=== PATIENT | male | born 1950 | race Caucasian/White ===

== ENCOUNTER 2017-07-15 06:18 | Day surgery (SDC) | payer MEDICARE ==
--- NOTE | 2017-07-03 16:29 | HP ---
CC: Dr. Ballesteros; Dr. Jo * PREOPERATIVE HISTORY AND PHYSICAL: DATE OF ADMISSION: 07/15/17 This patient is scheduled for same-day surgery admission by Dr. Booker on 07/15/17. DATE OF EXAMINATION: 07/02/17. ATTENDING SURGEON: Dr. Chris Booker * (dictated by Bren Guaman NP). CHIEF COMPLAINT: Right inguinal hernia. HISTORY OF PRESENT ILLNESS: The patient is a pleasant 66-year-old male referred to Dr. Booker by Dr. Ballesteros for evaluation of a right inguinal hernia. The patient noted a bulge in the right groin approximately 2 months ago. He denies any inciting event or injury. He has had mild discomfort from this area and it is not completely reducible. He denies any dysuria. He denies any change in his bowel habits or other gastrointestinal complaints. He is not noted any bulges in the left inguinal region. He has not had previous inguinal surgery. Dr. Booker examined the patient and noted an obvious bulge in the right inguinal region that is tender and not completely reducible and moderate in size. Dr. Booker has recommended open repair of the right inguinal hernia with mesh as the same-day surgery procedure and discussed the nature of the procedure, the relevant risks, and benefits and today I have reviewed the typical postoperative care and recovery. The patient has had a chance to ask questions and stated that he understands the information and is satisfied with the answers given to his questions. He will sign surgical consent on the day of surgery. He had preoperative cardiac clearance with Dr. Jo. Please see the attached consultation note dated 06/04/17. 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 MEDICATIONS: 1. Pradaxa 150 mg p.o. b.i.d. The patient was advised to take his last dose of Pradaxa on 07/12/17 in preparation for surgery. 2. Multivitamins daily. 3. Fluticasone 50 mcg 2 sprays each nostril daily. 4. Atorvastatin 40 mg p.o. daily. 5. Sotalol 120 mg one half tablet b.i.d. ALLERGIES: PENICILLIN. FAMILY HISTORY: No known anesthesia complications, bleeding tendencies, or clotting disorders. 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 REVIEW OF SYSTEMS: Constitutional: Denies constitutional symptoms. Cardiovascular: Denies chest pain, shortness of breath, orthopnea, syncope; denies history of deep vein thrombosis or pulmonary embolism. Please see the attached cardiology consultation note from Dr. Jo for details of his cardiac history. EKG in Dr. Jo's office 06/04/17 indicated normal sinus rhythm. Echocardiogram done 06/12/17 revealed ejection fraction of 55% and no aortic valve stenosis. Respiratory: History of emphysema with no current shortness of breath or orthopnea. Gastrointestinal: Denies nausea, vomiting, diarrhea, or constipation. Genitourinary: Denies any dysuria. Hematologic: Denies any bleeding tendencies and is not certain if he has received blood transfusions. He denies any previous anesthesia complications. Musculoskeletal : Denies any chronic back or joint pain. Neurologic: Status post left CVA 2008 with full recovery except for very mild speech impairment. PHYSICAL EXAMINATION GENERAL SURVEY: The patient is a 66-year-old male well developed, well nourished, in no acute distress. VITAL SIGNS: Height 66.5 Inches, weight 180 pounds. Body mass index 28.6. Blood pressure 100/70, pulse 88 and regular, respiratory rate 16, temperature 97.4 tympanic. SKIN: Warm, dry, intact. HEENT: Benign. NECK: Supple. No carotid bruits. No cervical lymphadenopathy. CHEST: With well-healed sternotomy incision and right thoracotomy incision. Lungs, breath sounds bilaterally clear and equal. HEART: Regular rate and rhythm. S1 and S2. No murmurs or rubs appreciated. ABDOMEN: Active bowel sounds. Soft and nondistended. Nontender throughout. No obvious masses, organomegaly, or evidence of ventral hernia. GENITALIA: Inguinal exam was done by Dr. Booker. Obvious right inguinal bulge consistent with right inguinal hernia that is tender and not completely reducible, moderate in size; no left inguinal hernia. No testicular masses. No scrotal enlargement. RECTAL: Deferred. EXTREMITIES: Warm without edema or skin ulcerations. NEUROLOGIC: Alert and oriented x3. Steady gait. Mild speech impairment. Core Paster strength is 5/5. IMPRESSION: Right inguinal hernia. PLAN: Same-day surgery admission to Dr. Booker's service for open right inguinal hernia repair with mesh on 07/15/17. BREN GUAMAN, LITERACY COACH [id number]/CPS #: [id number] YOSEF
[~2017-07-15 06:18] MED LIST: Buffered Lidocaine 0.9% SYRIN* 5 ML/SYR SYRINGE INTRADERM ONE; NS 0.9% 1000 ML* 1,000 ML IV SCH
[2017-07-15] MEDS ORDERED: Clindamycin 900 MG IVPREMIX(* 900 MG/50 ML SDV IV ONE (06:39)
[2017-07-15] MEDS ORDERED: Buffered Lidocaine 0.9% SYRIN* 5 ML/SYR SYRINGE ONE (06:39)
[2017-07-15] MEDS ORDERED: Lidocaine 1% INJ* 10 MG/ML 30 ML SDV ONE (07:16)
[2017-07-15] MEDS ORDERED: Midazolam* 1 MG/ML 2 ML VIAL (2 MG) ONE (07:27)
[2017-07-15] MEDS ORDERED: fentaNYL* 50 MCG/ML 2 ML VIAL (100 MCG VIAL) ONE (07:27)
[2017-07-15] MEDS ORDERED: Bupivacaine 0.5% SDV PF* 30 ML VIAL ONE (07:32)
[2017-07-15] MEDS ORDERED: Lidocaine 2% PF * 5 ML VIAL ONE (08:08)
[2017-07-15] MEDS ORDERED: Ketorolac INJ* 30 MG/ML 1 ML VIAL ONE (08:08)
[2017-07-15] MEDS ORDERED: Famotidine IV* 10 MG/ML 2 ML (20 mg) ONE (08:08)
[2017-07-15] MEDS ORDERED: Dexamethasone IV* 4 MG/ML 1 ML (4 MG) ONE (08:08)
[2017-07-15] MEDS ORDERED: Propofol* 10 MG/ML 20 ML BTL IV PUSH ONE (08:08)
[2017-07-15] MEDS ORDERED: EPHEDrine (Pressors)* 50 MG/ML VIAL ONE (08:13)
[2017-07-15] MEDS ORDERED: fentaNYL* 50 MCG/ML 2 ML VIAL (100 MCG VIAL) IV PRN (08:33)
[2017-07-15] MEDS ORDERED: DiMENhydriNATE IV* 50 MG/ML VIAL IV PUSH PRN (08:33)
[2017-07-15] MEDS ORDERED: Acetaminophen TAB* 325 MG PO PRN (08:33)
[2017-07-15] MEDS ORDERED: PROCHLORPERAZINE INJ 5 MG/ML 2 ML VIAL IV PRN (08:33)
[2017-07-15] MEDS ORDERED: HYDROcodone/ACETAMIN 5-325 MG* 1 TAB PO PRN (08:33)
[2017-07-15] MEDS ORDERED: oxyCODONE/Acetamin 5/325 MG* TAB PO PRN (09:31)
[2017-07-15 10:56] VITALS: BP 120/81
--- NOTE | 2017-07-16 01:35 | OP ---
CC: Dr. Jo; Dr. Robb Ballesteros, [facility] * DATE OF OPERATION: 07/15/17 - [facility] DATE OF : 48 SURGEON: Chris Booker MD ASSISTANTS: CARLOS Marrero ANESTHESIOLOGIST: Dr. Mcmillan. ANESTHESIA: Local with monitored anesthesia care. PRE-OP DIAGNOSIS: Right inguinal hernia. POST-OP DIAGNOSIS: Right indirect inguinal hernia. OPERATIVE PROCEDURE: Open repair with ProGrip Covidien polyester mesh of indirect inguinal hernia. ESTIMATED BLOOD LOSS: Minimal. SPECIMENS: None. WOUND CLASSIFICATION: I. COMPLICATIONS: None. DRAINS: None. FINDINGS: Indirect hernia inguinal hernia on the right side. RECOMMENDATIONS: The patient is on Pradaxa twice daily. He has been off it for two days prior to the surgery. It was recommended that he start his first dose of Pradaxa 36 hours from the time of surgery, i.e. Saturday evening. He also has been given oral antibiotics for several days by Dr. Jo, which he will follow those instructions. Followup appointment has been made in the surgical office next week. DESCRIPTION OF PROCEDURE: Written informed consent was obtained, the right groin was marked with indelible ink and preoperative antibiotics were administered. The patient was taken to the operating room and placed in the supine position. Sequential compression devices and a warming blanket were applied. Anesthesia was administered in the right groin and abdomen. Lower abdomen were prepped and draped in the usual sterile fashion. Time-out verification was completed. Marcaine 0.25% mixed with 1% lidocaine was infiltrated extensively in the right groin and an oblique incision was made several fingerbreadths above the inguinal crease. The dissection was carried down through the Adalgisa's fascia and the external oblique aponeurosis and external ring were identified and opened in the direction of its fibers. The spermatic cord was identified and then circled with a one-quarter inch Mariel drain at the pubic tubercle. The cord structures were then dissected anteriorly to expose the underlying direct space and inguinal floor. There appeared to be no evidence of a direct inguinal hernia. The conjoint tendon and inguinal ligament were identified. The cord structures were then carefully evaluated and rather a large indirect inguinal hernia sac was from the cord structures, up into the internal ring at its neck. Care was taken to prevent injury to the cord structures itself. The indirect sac was then easily reduced and the somewhat patulous internal ring was closed with two separate 3-0 Polysorb sutures in preparation for mesh replacement. Next, the ProGrip precut Covidien mesh was then placed and sutured at the pubic tubercle medially, the conjoint tendon superiorly and the musculature laterally with interrupted 0 Polysorb sutures. It was secured to the inguinal ligament inferiorly with a running 0 Polysorb suture. The mesh was covered the direct and indirect spaces nicely and reconstructed the internal ring with adequate space to permit the cord structures. Hemostasis was assured. Additional Marcaine was infiltrated. The external oblique aponeurosis was closed with a running 3-0 Polysorb suture. Adalgisa's fascia was closed with interrupted 3-0 Polysorb suture. The skin was approximated with subcuticular 4-0 Polysorb suture. Steri-Strips and sterile dressings were applied. The patient tolerated the procedure well and was taken to the recovery room in stable condition. [id number]/CPS #: [id number] YOSEF
== END 2017-07-15 11:03 | disposition home or self-care (01) ==
LOC: OR 06:18
PROVIDERS: ATTEND Surgery
DX: K40.90 Unilateral inguinal hernia, without obstruction or gangrene, not specified as recurrent (principal); I25.10 Atherosclerotic heart disease of native coronary artery without angina pectoris; I25.2 Old myocardial infarction; I48.91 Unspecified atrial fibrillation; E78.5 Hyperlipidemia, unspecified; I69.328 Other speech and language deficits following cerebral infarction; Z79.02 Long term (current) use of antithrombotics/antiplatelets; Z95.3 Presence of xenogenic heart valve; Z88.0 Allergy status to penicillin; Z87.891 Personal history of nicotine dependence
CPT/HCPCS: C1781; J1100; J1885; J2001; J2250; J2704; J3010

== ENCOUNTER 2018-12-19 12:14 | Emergency (ER) | payer MEDICAID, MEDICARE ==
--- OUTSIDE RECORDS SUMMARY | 2018-12-19 12:24 | XMS REPORT | Continuity of Care Document ---
:1950 External Reference #:[id number] Author Name Maureen Leo Care Team Providers Name Role Phone Robb Ballesteros MD Primary Care Physician Unavailable Payers Type Date Identification Numbers Payment Provider Subscriber Policy Number: [id number] Medicare Viraj Astudillo PayID: [id number] [address] [facility] [place] [address] Policy Number: [id number] Medicaid Viraj Astudillo Group Name: 1 1 [address] PayID: [id number] [place] [address] Expires: 2018 Policy Number: [id number] Medicare Viraj Astudillo PayID: [id number] [address] [facility] [place] [address] Expires: 2017 Policy Number: [id number] Medicaid Viraj Astudillo PayID: [id number] [address] [place] [address] Effective: 2016 Policy Number: [id number] [facility] Viraj Astudillo Expires: 2018 Group Number: 60% [address] [facility] PayID: [id number] [address] Advance Directives Description No Information Available Problems Date Description Provider Status Onset: 11/15/2011 Atrial fibrillation Zhanna Jo M.D. Active Onset: 11/15/2011 Electrocardiogram abnormal Zhanna Jo M.D. Active Onset: 11/15/2011 Benign essential hypertension Zhanna Jo M.D. Active Onset: 11/15/2011 Aortic valve disorder Zhanna Jo M.D. Active Onset: 11/15/2011 Hyperlipidemia Zhanna Jo M.D. Active Onset: 02/08/2012 Dizziness and giddiness Zhanna Jo M.D. Active Onset: 02/08/2012 Coronary arteriosclerosis Zhanna Jo M.D. Active Onset: 06/03/2014 Malaise and fatigue Zhanna Jo M.D. Active Onset: 06/03/2014 Dyspnea Zhanna Jo M.D. 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 [employer] Tobacco Use Start: Unknown End: Former Cigarette Smoker smoked 30 yrs 1 pk Unknown daily Quit 08/03 ETOH Use Currently consumes 1-2 beers per week alcohol Tobacco Use Start: Unknown End: Patient is a former quit February 02, 2012 Unknown smoker Recreational Drug Use Denies Drug Use Smoking Status Reviewed: 12/01/18 Patient is a former quit February 02, 2012 smoker Enjoy Exercising walks every day Exercise Type/Frequency Exercises regularly walks daily Allergies, Adverse Reactions, Alerts Date Description Reaction Status Severity Comments 02/02/2010 Penicillin rash Active Medications Medication Date Status Form Strength Qnty SIG Indications Ordering Provider Pradaxa 03/17/ Active Capsules 150mg 60cap 1 cap by Zhanna 2014 s mouth S. twice a nilson MIliana Multivitamin & / Active Tab daily Unknown Mineral 0000 Atorvastatin / Active Tablets 40mg 1 by Unknown Calcium 0000 mouth every day Sotalol HCL / Active 120mg 1/2 Unknown (AF) 0000 tablet twice a day by mouth Clindamycin 07/10/ Hx Capsules 300mg 6caps 1 Tablet Leann HCL 2017 tid For 2 B. Days(07/16 [place] And [employer] 07/17/17) Oxycodone-Acet 07/02/ Hx Tablets 5-325mg 8tabs 1 tab by Leann aminophen 2017 mouth B. every 6 [place], hours as [employer]TAIN needed Accupril 06/29/ Hx Tablets 5mg 90tab 1/2 by Aylin 2013 - s mouth [place], 02/21/ day M.DShayna 2014 Metoprolol 02/14/ Hx Tablets ER 50mg 45tab 1 tab by Qutaybeh Succinate ER 2012 - 24HR s mouth bid S. 12/25/ Deysi 2016 MIliana Ecotrin Low / Hx Tablets DR 81mg 100ta 1 po qd Unknown Strength 0000 - bs 2015 Simvastatin / Hx Tablets 40mg 30tab 1 po qhs Unknown 0000 - s 2013 Sotalol HCL / Hx Tablets 80mg 60tab 1/2 on Unknown 0000 - s Thursday 11/15/ and 1 2010 tablet the rest of the days Coumadin / Hx Solution Rec 5mg 30uni as Unknown 0000 - ts directed 2013 Bupropion HCL / Hx Tablets ER 150mg 30tab 1 tab po Unknown ER 0000 - 12HR s bid 2013 Metoprolol / Hx Tablets ER 50mg 90tab 1 po qd Unknown Succinate ER 0000 - 24HR s 2011 Atorvastatin / Hx dose Unknown Calcium 0000 - unknown. 2013 this bid per patient Simvastatin / Hx Tablets 40mg 90tab 1 by Unknown 0000 - s mouth 2014 night at bedtime Amiodarone HCL / Hx Tablets 200mg 30tab 1 po qam Unknown 0000 - s 2013 Digoxin / Hx Tablets 125mcg 90tab 1 by Unknown 0000 - s mouth 06/29/ day 2013 Flomax / Hx Capsules 0.4mg 14cap 1 by Unknown 0000 - s mouth 06/28/ 2013 [place] / Hx Tablets 5-325mg 40tab 1 by Unknown 0000 - s mouth 06/29/ 2013 hours as needed Diltiazem HCL / Hx Caps ER 24HR 120mg 1 by Unknown ER 0000 - mouth day 2015 Xarelto / Hx Tablets 20mg 1 by Unknown 0000 - mouth 2014 Fluticasone 00/ Hx Suspension 50mcg/Act 2 sprays Unknown Propionate 0000 - each 06/03/ nostril 2017 everyday Immunizations Description No Information Available Vital Signs Date Vital Result Comment 12/01/2018 10:33am Height 66.5 inches 5'6.50" Weight 189.50 lb Heart Rate 60 /min BP Systolic Sitting 140 mmHg ule BP Diastolic Sitting 86 mmHg ule BMI (Body Mass Index) 30.1 kg/m2 Ejection Fraction 55-60% Echo 03/14/18 02/24/2018 10:34am Height 66.5 inches 5'6.50" Weight 188.75 lb w/shoes Heart Rate 60 /min BP Systolic Sitting 126 mmHg L/A reg cuff BP Diastolic Sitting 82 mmHg L/A reg cuff BMI (Body Mass Index) 30.0 kg/m2 Ejection Fraction 55-60% cl% echo 06/12/2017 07/23/2017 10:58am Heart Rate 60 /min BP Systolic 102 mmHg BP Diastolic 70 mmHg Respiratory Rate 18 /min Body Temperature 97.7 F 07/02/2017 8:53am Height 66.5 inches 5'6.50" Weight 180.00 lb Heart Rate 88 /min BP Systolic 100 mmHg BP Diastolic 70 mmHg Respiratory Rate 16 /min Body Temperature 97.4 F BMI (Body Mass Index) 28.6 kg/m2 06/04/2017 2:40pm Height 66.5 inches 5'6.50" Weight 180.31 lb with shoes Heart Rate 62 /min BP Systolic Sitting 130 mmHg Rue reg cuff BP Diastolic Sitting 70 mmHg Rue reg cuff Respiratory Rate 16 /min BMI (Body Mass Index) 28.7 kg/m2 Ejection Fraction 55-60% date 01/04/16 ECHO 05/15/2017 1:29pm Height 68 inches 5'8" Weight 180.00 lb Heart Rate 62 /min BP Systolic 118 mmHg BP Diastolic 70 mmHg Respiratory Rate 16 /min Body Temperature 97.1 F BMI (Body Mass Index) 27.4 kg/m2 05/07/2017 9:33am Height 68 inches 5'8" Weight 180.00 lb with shoes Heart Rate 66 /min BP Systolic Sitting 124 mmHg Ra reg cuff BP Diastolic Sitting 86 mmHg Ra reg cuff BMI (Body Mass Index) 27.4 kg/m2 Ejection Fraction 55% - 60% echo 01/04/16 09/24/2016 10:47am Height 68 inches 5'8" Weight 188.00 lb w/coat and shoes Heart Rate 66 /min BP Systolic Sitting 122 mmHg LA reg cuff BP Diastolic Sitting 72 mmHg LA reg cuff BMI (Body Mass Index) 28.6 kg/m2 Ejection Fraction 55-60% Echo 01/04/16 12/26/2015 3:07pm Height 68 inches 5'8" Weight 174.00 lb with shoes Heart Rate 60 /min BP Systolic Sitting 132 mmHg LA, regular cuff BP Diastolic Sitting 88 mmHg LA, regular cuff BMI (Body Mass Index) 26.5 kg/m2 Ejection Fraction 50-55% echo 02/08/15 02/22/2015 1:25pm Height 68 inches 5'8" Weight 173.75 lb w/shoes Heart Rate 80 /min BP Systolic Sitting 124 mmHg LA reg cuff BP Diastolic Sitting 72 mmHg LA reg cuff Respiratory Rate 14 /min BMI (Body Mass Index) 26.4 kg/m2 08/05/2014 10:44am Height 68 inches 5'8" Weight 177.75 lb w/shoes Heart Rate 66 /min BP Systolic Sitting 112 mmHg LA Reg cuff BP Diastolic Sitting 70 mmHg LA Reg cuff Respiratory Rate 16 /min BMI (Body Mass Index) 27.0 kg/m2 06/29/2014 11:55am Height 68 inches 5'8" Weight 177.50 lb w/shoes Heart Rate 68 /min BP Systolic Sitting 128 mmHg BP Diastolic Sitting 80 mmHg Respiratory Rate 16 /min BMI (Body Mass Index) 27.0 kg/m2 06/03/2014 10:35am Height 68 inches 5'8" Weight 172.25 lb Heart Rate 64 /min weak BP Systolic Sitting 94 mmHg BP Diastolic Sitting 58 mmHg Respiratory Rate 20 /min BMI (Body Mass Index) 26.2 kg/m2 03/01/2014 2:53pm Height 68 inches 5'8" Weight 197.00 lb Heart Rate 84 /min BP Systolic Sitting 126 mmHg left arm, reg cuff BP Diastolic Sitting 84 mmHg left arm, reg cuff BP Systolic Standing 116 mmHg left arm, reg cuff BP Diastolic Standing 82 mmHg left arm, reg cuff Respiratory Rate 16 /min BMI (Body Mass Index) 30.0 kg/m2 06/26/2013 10:43am Height 68 inches 5'8" Weight 192.00 lb Heart Rate 60 /min BP Systolic Sitting 132 mmHg BP Diastolic Sitting 88 mmHg Respiratory Rate 20 /min BMI (Body Mass Index) 29.2 kg/m2 10/20/2012 11:12am Height 68 inches 5'8" Weight 200.00 lb Heart Rate 88 /min BP Systolic Sitting 120 mmHg BP Diastolic Sitting 78 mmHg Respiratory Rate 20 /min BMI (Body Mass Index) 30.4 kg/m2 04/14/2012 10:41am Height 68 inches 5'8" Weight 193.00 lb Heart Rate 76 /min regular BP Systolic Sitting 108 mmHg BP Diastolic Sitting 80 mmHg BMI (Body Mass Index) 29.3 kg/m2 03/07/2012 10:22am Height 68 inches 5'8" Weight 197.75 lb Heart Rate 68 /min BP Systolic Sitting 110 mmHg BP Diastolic Sitting 80 mmHg BMI (Body Mass Index) 30.1 kg/m2 02/08/2012 3:32pm Height 68 inches 5'8" Weight 191.00 lb Heart Rate 84 /min BP Systolic Sitting 110 mmHg BP Diastolic Sitting 94 mmHg BMI (Body Mass Index) 29.0 kg/m2 11/15/2011 10:39am Height 68 inches 5'8" Weight 192.00 lb Heart Rate 83 /min BP Systolic Sitting 140 mmHg L BP Diastolic Sitting 100 mmHg L BMI (Body Mass Index) 29.2 kg/m2 04/10/2010 1:56pm Height 68 inches 5'8" Weight 201.00 lb Heart Rate 94 /min BP Systolic Sitting 114 mmHg BP Diastolic Sitting 70 mmHg BMI (Body Mass Index) 30.6 kg/m2 02/02/2010 1:46pm Height 68 inches 5'8" Weight 202.00 lb Heart Rate 77 /min BP Systolic Sitting 124 mmHg BP Diastolic Sitting 90 mmHg BP Systolic Standing 130 mmHg BP Diastolic Standing 94 mmHg BP Systolic Lying Down 130 mmHg BP Diastolic Lying Down 90 mmHg Respiratory Rate 16 /min BMI (Body Mass Index) 30.7 kg/m2 Results Test Date Facility Test Result H/L Range Note Basic Metabolic 07/02/2017 [facility] Sodium 138 mmol/L N 133- [address] [place] [address] [phone] Potassium 4.3 mmol/L N 3.5-5.0 Chloride 107 mmol/L N 101-111 Co2 Carbon Dioxide 28 mmol/L N 22-32 Anion Gap 3 mmol/L N 2-11 Glucose 67 mg/dL Low 70-100 Blood Urea Nitrogen 14 mg/dL N 6-24 Creatinine 0.79 mg/dL N 0.67-1.17 BUN/Creatinine Ratio 17.7 N 8-20 Calcium 8.9 mg/dL N 8.6-10.3 Egfr Non- 97.8 N >60 Egfr 125.8 N >60 1 Laboratory test 06/03/2014 [facility] B Type Natriuretic 128 pg/ mL N [address] [place] [address] [phone] 1 Because ethnic data is not always readily available, this report includes an eGFR for both -Americans and non- Americans. The National Kidney Disease Education Program (NKDEP) does not endorse the use of the MDRD equation for patients that are not between the ages of 18 and 70, are , have extremes of body size, muscle mass, or nutritional status, or are non- or non-. According to the National Kidney Foundation, irrespective of diagnosis, the stage of the disease is based on the level of kidney function: Stage Description GFR(mL/min/1.73 m(2)) 1 Kidney damage with normal or decreased GFR 90 2 Kidney damage with mild decrease in GFR 60-89 3 Moderate decrease in GFR 30-59 4 Severe decrease in GFR 15-29 5 Kidney failure <15 (or dialysis) 2 >100 to <200 pg/mL: likely compensated congestive heart failure (CHF) 200 to 400 pg/mL: likely moderate CHF >400 pg/mL: likely moderate to severe CHF [place] HEART Procedures Date Code Description Status 12/01/2018 17521 EKG Tracing & Interpretation Completed 03/14/2018 52499 ECHO Transthoracic, Real-Time 2D With Doppler And Color Completed Flow 03/14/2018 07372 ECHO Transthoracic, Real-Time 2D With Doppler And Color Completed Flow 02/24/2018 78453 EKG Tracing & Interpretation Completed 07/15/2017 68074 Repair Hernia Inguinal > 5Yrs, Reducible Completed 07/15/2017 91056 Repair Hernia Inguinal > 5Yrs, Reducible Completed 06/12/2017 16572 ECHO Transthoracic, Real-Time 2D With Doppler And Color Completed Flow 06/12/2017 23067 Holter Monitor Review (24 hr)dr beach & interp only Completed 06/11/2017 63034 ECG Monitor/Recording W/Visual Superimposition Scanning Completed 06/04/2017 26904 EKG Tracing & Interpretation Completed 05/07/2017 45906 EKG Tracing & Interpretation Completed 09/24/2016 29070 EKG Tracing & Interpretation Completed 01/04/2016 33207 ECHO Transthoracic, Real-Time 2D With Doppler And Color Completed Flow 12/26/2015 75571 EKG Tracing & Interpretation Completed 02/22/2015 18642 EKG Tracing & Interpretation Completed 02/08/2015 47669 Color Flow Doppler/Interp & Reprt Completed 02/08/2015 91504 Pulse Wave/Continuous-Interp.RPT Completed 02/08/2015 64094 Echocardiography, Transesophageal, Real Time W/Image 2D Completed W/W/O M-M 02/08/2015 25724 EKG, Interpretation Only Completed 02/07/2015 26651 EKG, Interpretation Only Completed 02/07/2015 37045 EKG Tracing & Interpretation Completed 08/25/2014 66207 ECHO Transthoracic, Real-Time 2D With Doppler And Color Completed Flow 08/05/2014 42098 EKG Tracing & Interpretation Completed 06/03/2014 07398 ECHO Transthoracic, Real-Time 2D With Doppler And Color Completed Flow 06/03/2014 31110 EKG Tracing & Interpretation Completed 03/01/2014 88340 EKG Tracing & Interpretation Completed 02/05/2014 07380 ECHO Transthoracic, Real-Time 2D With Doppler And Color Completed Flow 06/26/2013 28063 EKG Tracing & Interpretation Completed 10/20/2012 72840 EKG Tracing & Interpretation Completed 06/12/2012 16594 ECHO Transthoracic, Real-Time 2D With Doppler And Color Completed Flow 03/07/2012 74092 EKG Tracing & Interpretation Completed 02/14/2012 17841 Holter Monitor Review (24 hr)dr review & interp only Completed 02/08/2012 93818 EKG Tracing & Interpretation Completed 12/13/2011 09889 ECHO Transthoracic, Real-Time 2D With Doppler And Color Completed Flow 11/15/2011 77958 EKG Tracing & Interpretation Completed 12/01/2010 26500 Color Flow Doppler/Interp & Reprt Completed 12/01/2010 43699 Pulse Wave/Continuous-Interp.RPT Completed 12/01/2010 84697 ECHO Transthorasic Realtime 2D W Doppler & Color Flow Hosp Completed 05/17/2010 55106 ECHO Transthoracic, Real-Time 2D With Doppler And Color Completed Flow 04/28/2010 67466 ECHO Stress Test Incl Perf Contiuous ekg Monitoring W/Phys Completed Superv 04/10/2010 80745 EKG Tracing & Interpretation Completed 02/02/2010 46627 EKG Tracing & Interpretation Completed Encounters Type Date Location Provider Dx Diagnosis Office Visit 02/24/2018 [facility] Zhanna S. I48.91 Unspecified atrial 11:00a [place] fibrillation I71.9 Aortic aneurysm of unspecified site, without rupture Z95.2 Presence of prosthetic heart valve I35.0 Nonrheumatic aortic (valve) stenosis E78.4 Other hyperlipidemia R53.83 Other fatigue Office Visit 06/04/2017 [place] Zhanna S. I48.91 Unspecified atrial 3:00p [facility] [place] fibrillation Director Of Media I35.0 Nonrheumatic aortic (valve) stenosis Z95.2 Presence of prosthetic heart valve I71.2 Thoracic aortic aneurysm, without rupture I34.0 Nonrheumatic mitral (valve) insufficiency I36.1 Nonrheumatic tricuspid (valve) insufficiency I27.2 Other secondary pulmonary hypertension I10 Essential (primary) hypertension E78.4 Other hyperlipidemia R94.31 Abnormal electrocardiogram [ECG] [EKG] Office Visit 05/15/2017 [facility] S. K40.90 Unil inguinal 1:45p [facility] Jhony hernia, w/o obst Director Of Media or gangr, not spcf as recur Office Visit 05/07/2017 [place] Zhanna S. I35.0 Nonrheumatic 10:00a Cardiology [place] aortic (valve) stenosis I10 Essential (primary) hypertension Z95.2 Presence of prosthetic heart valve I34.0 Nonrheumatic mitral (valve) insufficiency I36.1 Nonrheumatic tricuspid (valve) insufficiency I71.9 Aortic aneurysm of unspecified site, without rupture R94.31 Abnormal electrocardiogram [ECG] [EKG] Office Visit 09/24/2016 11:00a [place] Shandra Chao S. Z95.2 Presence of [place] prosthetic heart valve I35.0 Nonrheumatic aortic (valve) stenosis I10 Essential (primary) hypertension I48.91 Unspecified atrial fibrillation I34.0 Nonrheumatic mitral (valve) insufficiency I36.1 Nonrheumatic tricuspid (valve) insufficiency I49.3 Ventricular premature depolarization Office Visit 12/26/2015 3:20p [place] [facility] Zhanna S. Z95.2 Presence of [place] prosthetic heart valve I35.0 Nonrheumatic aortic (valve) stenosis I10 Essential (primary) hypertension Z86.73 Prsnl hx of TIA (TIA), and cereb infrc w/o resid deficits I25.10 Athscl heart disease of [place] coronary artery w/o ang pctrs Office Visit 02/22/2015 [place] Qunamitaybeh S. 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 427.31 Atrial 8:42a hardeep Eddy, N.P. 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 427.31 Atrial 10:41a [facility] [place] Fibrillation 424.1 Aortic Valve Disorder 401.9 Hypertension Unspec Office Visit 02/08/2015 [place] [facility] Leta S. 427.31 Atrial 8:42a hardeep Eddy, N.P. 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 424.1 Aortic Valve [place] Disorder 401.1 Hypertension Benign 414.01 Coronary Atherosclerosis [place] 427.31 Atrial Fibrillation Office Visit 06/29/2014 11:30a [place] [facility] CARLOS Vela 424.1 Aortic Valve Disorder 401.1 Hypertension Benign 414.01 Coronary Atherosclerosis [place] 794.31 Electrocardiogram (ECG) (EKG) Abnormal Office Visit 06/03/2014 [place] Qugamalieleh S. 401.1 Hypertension 11:00a Shandra Jo M.D. Benign 424.1 Aortic Valve Disorder 780.79 Malaise And Fatigue Other 427.31 Atrial Fibrillation 794.31 Electrocardiogram (ECG) (EKG) Abnormal 786.05 Shortness Of Breath Office Visit 03/01/2014 [place] Zhanna S. 427.31 Atrial 3:00p Shandra Jo M.D. Fibrillation 401.1 Hypertension Benign 414.01 Coronary Atherosclerosis [place] 424.1 Aortic Valve Disorder 794.31 Electrocardiogram (ECG) (EKG) Abnormal Office Visit 06/26/2013 [place] Zhanna S. 427.31 Atrial 10:40a Shandra Jo M.D. Fibrillation 401.1 Hypertension Benign 414.01 Coronary Atherosclerosis [place] 424.1 Aortic Valve Disorder 794.31 Electrocardiogram (ECG) (EKG) Abnormal Office Visit 10/20/2012 [place] Zhanna S. 427.31 Atrial 11:20a Shandra Jo M.D. Fibrillation 401.1 Hypertension Benign 414.01 Coronary Atherosclerosis [place] 424.1 Aortic Valve Disorder 794.31 Electrocardiogram (ECG) (EKG) Abnormal Office Visit 04/14/2012 [place] Ruby Angel 427.31 Atrial 11:00a Cardiology N.P. Fibrillation 401.1 Hypertension Benign Office Visit 03/07/2012 [place] Ruby Angel 427.31 Atrial 10:30a Cardiology N.P. Fibrillation 401.1 Hypertension Benign Office Visit 02/08/2012 [place] Zhanna S. 427.31 Atrial 3:40p Shandra Jo M.D. Fibrillation 794.31 Electrocardiogram (ECG) (EKG) Abnormal 780.4 Dizziness & Giddiness 401.1 Hypertension Benign 272.4 Hyperlipidemia Other Unspec 414.01 Coronary Atherosclerosis [place] Office Visit 11/15/2011 [place] Linakellee S. 427.31 Atrial 11:00a Shandra Jo M.D. Fibrillation 794.31 Electrocardiogram (ECG) (EKG) Abnormal 401.1 Hypertension Benign 424.1 Aortic Valve Disorder 272.4 Hyperlipidemia Other Unspec Office Visit 04/10/2010 [place] Pranavscott S. 427.31 Atrial 2:00p Shandra Jo M.D. Fibrillation 794.31 Electrocardiogram (ECG) (EKG) Abnormal 401.1 Hypertension Benign 272.4 Hyperlipidemia Other Unspec 424.1 Aortic Valve Disorder Office Visit 02/02/2010 [place] Pranavscott S. 427.31 Atrial 1:40p Shandra Jo M.D. 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 Cerebral Artery Hospitalists Unspec W/ Cerebral Infarc Office Visit 08/04/2009 [facility] Christian 428.0 Congestive Heart 2:30a hardeep Eddy M.D. Failure Hospitalists Unspecified Office Visit 08/03/2009 [facility] Donald Martinez, 434.91 Occlusion 1:30a hardeep Eddy M.D. Cerebral Artery Hospitalists Unspec W/ Cerebral Infarc Office Visit 08/02/2009 [facility] Donald Martinez, 427.31 Atrial 2:00a hardeep Eddy M.D. Fibrillation Hospitalists Office Visit 08/01/2009 [facility] Donald Martinez, 427.31 Atrial 2:00a hardeep Eddy M.D. Fibrillation Hospitalists Office Visit 07/31/2009 [facility] Gabe Jeffries, 434.91 Occlusion 12:15a hardeep Eddy M.D. Cerebral Artery Hospitalists Unspec W/ Cerebral Infarc Office Visit 07/30/2009 [facility] Gabe Jeffries, 434.91 Occlusion 12:15a hardeep Eddy M.D. Cerebral Artery Hospitalists Unspec W/ Cerebral Infarc Office Visit 07/29/2009 [facility] Nesha, 434.91 Occlusion 2:30a hardeep Eddy M.D. Cerebral Artery Hospitalists Unspec W/ Cerebral Infarc Plan of Treatment 12/01/2018 - Zhanna Jo M.D.I71.9 Aortic aneurysm of unspecified site, without ruptureNew Orders:Echocardiogram, Ordered: 12/01/18I48.91 Unspecified atrial [id number] Presence of prosthetic heart valveFollow up :9 months ov
[2018-12-19 12:27] VITALS: BP 143/87
--- NOTE | 2018-12-19 13:23 | UC ---
Back Pain HPI - HPI Summary HPI Summary: The patient is a 68-year-old male who slipped on icy steps 2 days ago. He injured his right thoracic back. He states it hurts when he lays down or takes a deep breath in. He denies any shortness of breath. He denies any hematuria. - History of Current Complaint Chief Complaint: UCBackPain Stated Complaint: BACK INJURY Time Seen by Provider: 12/19/18 12:57 Hx Obtained From: Patient Onset/Duration: Sudden Onset, Lasting Days Timing: Constant Severity Initially: Moderate Severity Currently: Moderate Pain Intensity: 6 Pain Scale Used: 0-10 Numeric Back Pain: Is Discrete @ Character: Aching Aggravating Factor(s): Movement, Cough Alleviating Factor(s): Rest Associated Signs And Symptoms: Positive: Negative Full Body (No Head): 1 - pain - Allergies/Home Medications Allergies/Adverse Reactions: Allergies Allergy/AdvReac Type Severity Reaction Status Date / Time Penicillins Allergy Rash Verified 12/19/18 12:28 PMH/Surg Hx/FS Hx/Imm Hx Previously Healthy: Yes Cardiovascular History: Hypertension, Atrial Fibrillation - Surgical History Surgical History: Yes Surgery Procedure, Year, and Place: PATIENT WAS UNABLE TO EXPLAIN WHAT SURGERIES HE HAS HAD - Family History Known Family History: Positive: Hypertension - Social History Alcohol Use: Occasionally Alcohol Amount: 1 to 2 beers daily Substance Use Type: None Smoking Status (MU): Former Smoker Amount Used/How Often: 1 PPD X UNKNOWN AMOUNT OF YEARS Have You Smoked in the Last Year: No When Did the Patient Quit Smoking/Using Tobacco: 2011 - Immunization History Most Recent Influenza Vaccination: this year Most Recent Tetanus Shot: 'a couple of years ago' Most Recent Pneumonia Vaccination: 'this year' patient unsure Review of Systems All Other Systems Reviewed And Are Negative: Yes Constitutional: Positive: Negative Skin: Positive: Negative Eyes: Positive: Negative ENT: Positive: Negative Respiratory: Positive: Negative Cardiovascular: Positive: Negative Gastrointestinal: Positive: Negative Genitourinary: Positive: Negative Motor: Positive: Negative Neurovascular: Positive: Negative Musculoskeletal: Positive: Myalgia Neurological: Positive: Negative Psychological: Positive: Negative Physical Exam Triage Information Reviewed: Yes Appearance: Well-Appearing, No Pain Distress, Well-Nourished Vital Signs: Initial Vital Signs Temp 98 F 12/19/18 12:23 Pulse 66 12/19/18 12:23 Resp 18 12/19/18 12:23 BP 143/87 12/19/18 12:23 Pulse Ox 100 12/19/18 12:23 Vital Signs Reviewed: Yes Eye Exam: Normal ENT: Positive: Hearing grossly normal. Negative: Nasal congestion, Nasal drainage, Trismus, Muffled voice, Hoarse voice Dental Exam: Normal Neck: Positive: Supple, Nontender, No Lymphadenopathy Respiratory: Positive: Lungs clear, Normal breath sounds, No respiratory distress, No accessory muscle use Cardiovascular: Positive: No Murmur Musculoskeletal: Positive: ROM Intact Neurological: Positive: Alert Psychological Exam: Normal Diagnostics - Radiology No standard instances Radiology Interpretation Completed By: Radiologist Summary of Radiographic Findings: no ptx, no rib fx Back Pain Course/Dx - Differential Dx/Diagnosis Provider Diagnosis: Contusion of rib on right side Discharge - Sign-Out/Discharge Documenting (check all that apply): Patient Departure All imaging exams completed and their final reports reviewed: Yes - Discharge Plan Condition: Stable Disposition: HOME Patient Education Materials: Rib Contusion (ED) Referrals: Robb Ballesteros MD [Primary Care Provider] - 5 Days (if not better) Additional Instructions: tylenol for pain - Billing Disposition and Condition Condition: STABLE Disposition: Home
[2018-12-19] MEDS ORDERED: Acetaminophen TAB* 325 MG PO ONE (13:50)
== END 2018-12-19 14:04 | disposition home or self-care (01) ==
LOC: UCEAST 12:14
DX: S20.221A Contusion of right back wall of thorax, initial encounter (principal); W10.9XXA Fall (on) (from) unspecified stairs and steps, initial encounter; Y92.9 Unspecified place or not applicable; Z88.0 Allergy status to penicillin; Z87.891 Personal history of nicotine dependence
CPT/HCPCS: 99212; A9270-GY; G0463